=== PATIENT | male | born 1990 | race Caucasian/White ===

== ENCOUNTER 2017-10-05 08:41 | Emergency (ER) | payer SELFPAY ==
[~2017-10-05] VITALS: Ht 175.3 cm; Wt 62.4 kg
[~2017-10-05 08:41] MED LIST: AUGMENTIN875 MG PO; FLEXERIL10 MG PO; MOTRIN600 MG PO; PERCOCET 5/31 TABLET PO; ULTRAM50 MG PO
[2017-10-05 08:42] VITALS: BP 115/71
[2017-10-05] MEDS ORDERED: CELEXA20 MG PO (10:43)
[2017-10-05] MEDS ORDERED: PEN-VEE K,VEET500 MG PO (11:13)
[2017-10-05] MEDS ORDERED: TYLENOL WITH C1 EACH PO (11:13)
== END 2017-10-05 11:25 | disposition home or self-care (01) ==
LOC: EME 08:41
DX: K08.89 Other specified disorders of teeth and supporting structures (principal); F32.9 Major depressive disorder, single episode, unspecified
CPT/HCPCS: 99281; 99284

== ENCOUNTER 2017-11-08 01:15 | Inpatient (IN) | payer SELFPAY ==
[~2017-11-08] VITALS: Ht 175.3 cm; Wt 52.6 kg
[~2017-11-08 01:15] MED LIST changes: +CELEXA20 MG PO; +PEN-VEE K,VEET500 MG PO; +TYLENOL WITH C1 EACH PO
[2017-11-08 01:48] LABS: HEMATOCRIT 40.8 % (38.0-50.0); HEMOGLOBIN 13.6 G/DL (12.5-16.6); MCH 33.3 PG (29.0-34.0); MCHC 33.3 G/DL (30.0-36.0); PLATELET COUNT 299 K/uL (156-360); RBC DIS.WIDTH-CV 12.1 % (11.8-14.6); RED BLOOD COUNT 4.08 M/uL (4.00-5.50); WHITE BLOOD COUNT 11.3 K/uL (4.1-10.2)
[2017-11-08 01:59] LABS: ALBUMIN 4.5 g/dL (3.2-4.8); CHLORIDE 104 mEq/L (99-109); POTASSIUM 3.8 mEq/L (3.7-5.4); SODIUM 142 mEq/L (136-147)
[2017-11-08 02:01] LABS: GLUCOSE 223 mg/dL (70-99)
[2017-11-08 02:02] LABS: TOTAL PROTEIN 7.5 g/dL (6.4-8.3)
[2017-11-08 02:04] LABS: SERUM ETHYL ALCOHOL 52 mg/dL
[2017-11-08 02:05] LABS: ALKALINE PHOSPHATASE 59 IU/L (3-129); CREATININE 1.2 mg/dL (0.6-1.3); GFR ESTIMATE (CALCULATED) > 59 mL/min/ (58.99-99999)
[2017-11-08 02:06] LABS: UREA NITROGEN (BUN) 14 mg/dL (9-23)
[2017-11-08 02:07] LABS: AST (GOT) 152 IU/L (2-34)
[2017-11-08 02:08] LABS: ALT (GPT) 157 IU/L (3-49); CREATINE KINASE 166 IU/L (1-294)
[2017-11-08 02:09] LABS: TROP-I INTERPRETATION NEGATIVE; TROPONIN-I 0.01 ng/mL (0.0-0.30)
[2017-11-08 03:09] LABS: APPEARANCE SL.HAZY ((CLEAR)); BILIRUBIN NEGATIVE; BLOOD NEGATIVE; COLOR YELLOW ((YELLOW)); GLUCOSE (STRIP) 150; KETONES NEGATIVE; LEUKOCYTES NEGATIVE; NITRITE NEGATIVE; PROTEIN (STRIP) 100; SPECIFIC GRAVITY 1.027 (1.000-1.030); UROBILINOGEN 0.2 MG/DL (0.2-1.0)
[2017-11-08 03:14] LABS: BACTERIA NONE SEEN /HPF; EPITHELIAL CELLS RARE /HPF; MUCUS NONE SEEN /LPF; RED BLOOD CELLS 0-5 /HPF (0-5); WHITE BLOOD CELLS 0-5 /HPF (0-5)
[2017-11-08 03:18] LABS: AMPHETAMINE NEGATIVE (500 ng/mL); BARBITURATES NEGATIVE (200 ng/mL); BENZODIAZEPINES NEGATIVE (150 ng/mL); BUPRENORPHINE NEGATIVE (10 ng/mL); COCAINE PRESUMPTIVE POSITIVE (150 ng/mL); METHADONE NEGATIVE (200 ng/mL); METHAMPHETAMINE NEGATIVE (500 ng/mL); OPIATES (MORPHINE) NEGATIVE (100 ng/mL); OXYCODONE NEGATIVE (100 ng/mL); PHENCYCLIDINE NEGATIVE (25 ng/mL); PROPOXYPHENE NEGATIVE (300 ng/mL); THC CANNABINOIDS PRESUMPTIVE POSITIVE (50 ng/mL); TRICYCLIC ANTIDEPRESSANTS NEGATIVE (300 ng/mL)
[2017-11-08 04:58] LABS: BASE EXCESS -4.3 mEq/L (-3 to +3); BICARBONATE 22.9 mEq/L (22-26); CARBOXY HGB 4.7 % (0-5); COMMENTS - BLOOD GASES A+C+; METHEMOGLOBIN 1.4 % (0-1.5); PCO2 51 mm Hg (35-45); PO2 75 mm Hg (80-100); SITE LR; pH 7.26 (7.35-7.45)
[2017-11-08 04:59] LABS: DEVICE NC; O2 FLOW 5 L/MIN; TOTAL RESP RATE 24 resp/min
[2017-11-08 06:26] LABS: BASE EXCESS -5.6 mEq/L (-3 to +3); BICARBONATE 20.7 mEq/L (22-26); COMMENTS - BLOOD GASES A+C+; DEVICE NC; METHEMOGLOBIN 1.4 % (0-1.5); O2 FLOW 6 L/MIN; PCO2 43 mm Hg (35-45); PO2 80 mm Hg (80-100); SITE LR; TOTAL RESP RATE 20 resp/min; pH 7.29 (7.35-7.45)
[2017-11-08] MEDS ORDERED: RITALIN20 MG PO (07:44)
[2017-11-08 08:35] LABS: TROP-I INTERPRETATION NEGATIVE; TROPONIN-I 0.17 ng/mL (0.0-0.30)
[2017-11-08 10:52] VITALS: BP 100/63
== END 2017-11-08 11:46 | disposition left against medical advice (07) | DRG 918 ==
LOC: EME → EDBD 01:15 → EME 01:15 → 4EAST 04:28 → EDOF 04:28 → ENRESERV 04:34 → EDOF 07:57 → 4EAST 11:23
PROVIDERS: Emergency Medicine; Hospitalist
DX: T40.1X1A Poisoning by heroin, accidental (unintentional), initial encounter (principal); E87.2 Acidosis; I48.91 Unspecified atrial fibrillation; T68.XXXA Hypothermia, initial encounter; X31.XXXA Exposure to excessive natural cold, initial encounter; D72.829 Elevated white blood cell count, unspecified; R79.89 Other specified abnormal findings of blood chemistry; R09.02 Hypoxemia; F14.10 Cocaine abuse, uncomplicated; F10.10 Alcohol abuse, uncomplicated; F12.10 Cannabis abuse, uncomplicated; F11.10 Opioid abuse, uncomplicated; F32.9 Major depressive disorder, single episode, unspecified; F17.210 Nicotine dependence, cigarettes, uncomplicated
CPT/HCPCS: 36600; 70450; 71045; 80053; 81003; 82550 91; 82803; 83605; 84484; 84999; 85027; 87040; 93005; 99281; 99285; G0480; J1650; J2310; J7030